=== PATIENT | female | born 1965 | race Caucasian/White ===

== ENCOUNTER 2023-12-29 12:09 | Outpatient (RCR) | payer MEDICARE, SELFPAY | END 2024-02-08 12:11 | disposition home or self-care (01) | LOC: PT 12:09 | PROVIDERS: Visit Provider Nurse Practitioner Family | DX: M54.16 Radiculopathy, lumbar region (principal); M43.16 Spondylolisthesis, lumbar region | CPT/HCPCS: 97110; 97112; 97140; 97163; 97530 ==

== ENCOUNTER 2024-01-21 07:23 | Outpatient (RCR) | payer MEDICARE, SELFPAY ==
[2024-01-21] MEDS: ROMOSOZUMAB-AQQG 210 MG/2.34 ML SYRINGE SQ (11:34)
[2024-01-21 11:49] VITALS: BP 124/72; PULSE 87; TEMP 37.3; O2SAT 97
--- NOTE | 2024-01-21 12:09 | PC.NURSE ---
1155 no s/s of reaction at injection site, patient educated on calcium and vitamin d intake, patient already taking vitamin d as well as 2 tums twice a day
== END 2024-02-08 23:59 | disposition home or self-care (01) ==
LOC: INF 07:23
DX: M81.0 Age-related osteoporosis without current pathological fracture (principal)
CPT/HCPCS: 36592; 96372; J3111

== ENCOUNTER 2024-02-23 07:32 | Outpatient (RCR) | payer MEDICARE, SELFPAY ==
[2024-02-23 09:27] VITALS: BP 132/69; PULSE 18; TEMP 36.3; O2SAT 99
[2024-02-23] MEDS: ROMOSOZUMAB-AQQG 210 MG/2.34 ML SYRINGE SQ (09:30)
== END 2024-03-10 23:59 | disposition home or self-care (01) ==
LOC: INF 07:32
DX: M81.0 Age-related osteoporosis without current pathological fracture (principal)
CPT/HCPCS: 96365; J3111

== ENCOUNTER 2024-03-29 07:20 | Outpatient (RCR) | payer MEDICARE, SELFPAY ==
[2024-03-29 09:20] VITALS: BP 156/74; PULSE 78; TEMP 36.6; O2SAT 97
[2024-03-29] MEDS: ROMOSOZUMAB-AQQG 210 MG/2.34 ML SYRINGE SQ (09:31)
== END 2024-03-29 12:25 | disposition home or self-care (01) ==
LOC: INF 07:20
PROVIDERS: Visit Provider Nurse Practitioner Family
DX: M81.0 Age-related osteoporosis without current pathological fracture (principal)
CPT/HCPCS: 96372; J3111

== ENCOUNTER 2024-04-28 07:44 | Outpatient (RCR) | payer MEDICARE, SELFPAY ==
[2024-04-28 09:25] VITALS: BP 161/80; PULSE 75; TEMP 36.1
[2024-04-28] MEDS: ROMOSOZUMAB-AQQG 210 MG/2.34 ML SYRINGE SQ (09:52)
== END 2024-05-10 23:59 | disposition home or self-care (01) ==
LOC: INF 07:44
DX: M81.0 Age-related osteoporosis without current pathological fracture (principal)
CPT/HCPCS: 96372; J3111

== ENCOUNTER 2024-05-31 07:40 | Outpatient (RCR) | payer MEDICARE, SELFPAY ==
[2024-05-31 09:26] VITALS: BP 128/80; PULSE 84; TEMP 36.6; O2SAT 98
[2024-05-31] MEDS: ROMOSOZUMAB-AQQG 210 MG/2.34 ML SYRINGE SQ (09:49)
== END 2024-06-10 23:59 | disposition home or self-care (01) ==
LOC: INF 07:40
DX: M81.0 Age-related osteoporosis without current pathological fracture (principal)
CPT/HCPCS: 96372; J3111

== ENCOUNTER 2024-07-05 07:33 | Outpatient (RCR) | payer MEDICARE, SELFPAY ==
[2024-07-05 08:45] VITALS: BP 132/80; PULSE 76; TEMP 36.1; O2SAT 94
--- NOTE | 2024-07-05 08:52 | PC.NURSE ---
0845: Pt. to [facility] amb. for monthly injection. Seated in recliner. VSS. Denies questions or needs. Awaits med from pharmacy. Declines snack or beverage.
[2024-07-05] MEDS: ROMOSOZUMAB-AQQG 210 MG/2.34 ML SYRINGE SQ (09:04)
--- NOTE | 2024-07-05 09:12 | PC.NURSE ---
0904: Medicated with Evenity SQ x's 2 injections, see documentation. No bleeding to sites. Tolerated without c/o. 0910: No new changes. D/c'd amb. to home.
== END 2024-07-10 23:59 | disposition home or self-care (01) ==
LOC: INF 07:33
DX: M81.0 Age-related osteoporosis without current pathological fracture (principal)
CPT/HCPCS: 96372; J3111

== ENCOUNTER 2024-08-04 07:47 | Outpatient (RCR) | payer MEDICARE, SELFPAY ==
[2024-08-04 08:55] VITALS: BP 150/87; PULSE 70; TEMP 36.3; O2SAT 98
[2024-08-04] MEDS: ROMOSOZUMAB-AQQG 210 MG/2.34 ML SYRINGE SQ (09:14)
--- NOTE | 2024-08-04 09:21 | PC.NURSE ---
Pt rec'd Evenity injection x 2 (lt and rt abd) without incident.
== END 2024-08-10 23:59 | disposition home or self-care (01) ==
LOC: INF 07:47
PROVIDERS: Visit Provider Nurse Practitioner Family
DX: M81.0 Age-related osteoporosis without current pathological fracture (principal)
CPT/HCPCS: 96372; J3111

== ENCOUNTER 2024-09-04 07:29 | Outpatient (RCR) | payer MEDICARE, SELFPAY ==
[2024-09-04 08:58] VITALS: BP 129/81; PULSE 69; TEMP 36.3; O2SAT 97
[2024-09-04] MEDS: ROMOSOZUMAB-AQQG 210 MG/2.34 ML SYRINGE SQ (09:15)
== END 2024-09-04 11:48 | disposition home or self-care (01) ==
LOC: INF 07:29
PROVIDERS: Visit Provider Nurse Practitioner Family
DX: M81.0 Age-related osteoporosis without current pathological fracture (principal)
CPT/HCPCS: 96372; J3111

== ENCOUNTER 2024-10-06 07:33 | Outpatient (RCR) | payer MEDICARE, SELFPAY ==
[2024-10-06 09:15] VITALS: BP 134/80; PULSE 76; TEMP 36.6; O2SAT 97
[2024-10-06] MEDS: ROMOSOZUMAB-AQQG 210 MG/2.34 ML SYRINGE SQ (09:43)
== END 2024-10-06 13:30 | disposition home or self-care (01) ==
LOC: INF 07:33
PROVIDERS: Visit Provider Nurse Practitioner Family
DX: M81.0 Age-related osteoporosis without current pathological fracture (principal)
CPT/HCPCS: 96372; J3111

== ENCOUNTER 2024-11-06 07:35 | Outpatient (RCR) | payer MEDICARE, MEDICAID, SELFPAY ==
[2024-11-06 08:44] VITALS: BP 132/80; PULSE 74; TEMP 36.7; O2SAT 96
[2024-11-06] MEDS: ROMOSOZUMAB-AQQG 210 MG/2.34 ML SYRINGE SQ (08:47)
== END 2024-11-10 23:59 | disposition home or self-care (01) ==
LOC: INF 07:35
PROVIDERS: Visit Provider Nurse Practitioner Family
DX: M81.0 Age-related osteoporosis without current pathological fracture (principal)
CPT/HCPCS: 96372; J3111

== ENCOUNTER 2024-12-07 07:56 | Outpatient (RCR) | payer MEDICARE, SELFPAY ==
[2024-12-07] MEDS: ROMOSOZUMAB-AQQG 210 MG/2.34 ML SYRINGE SQ (09:03)
[2024-12-07 09:07] VITALS: BP 125/78; PULSE 80; TEMP 36.4; O2SAT 94
== END 2024-12-08 07:53 | disposition home or self-care (01) ==
LOC: INF 07:56
PROVIDERS: Visit Provider Nurse Practitioner Family
DX: M81.0 Age-related osteoporosis without current pathological fracture (principal)
CPT/HCPCS: 96372; J3111

== ENCOUNTER 2025-01-04 07:29 | Outpatient (RCR) | payer MEDICARE, MEDICAID, SELFPAY ==
[2025-01-04 08:50] VITALS: BP 150/67; PULSE 72; TEMP 36.7; O2SAT 97
[2025-01-04] MEDS: ROMOSOZUMAB-AQQG 210 MG/2.34 ML SYRINGE SQ (09:15)
== END 2025-01-04 13:26 | disposition home or self-care (01) ==
LOC: INF 07:29
PROVIDERS: Visit Provider Nurse Practitioner Family
DX: M81.0 Age-related osteoporosis without current pathological fracture (principal)
CPT/HCPCS: 96372; J3111